=== PATIENT | male | born 1980 | race Caucasian/White ===

== ENCOUNTER 2016-09-27 11:16 | Emergency (ER) | payer OTHER ==
[~2016-09-27] VITALS: Ht 182.9 cm; Wt 114.6 kg
[2016-09-27 11:17] VITALS: TEMP 36.6; Ht 182.9 cm; Wt 114.6 kg
[2016-09-27] MEDS ORDERED: DIPHTHERIA/TETANUS/PERTUSSIS 0.5 ML SYR/VIAL IM ONE (11:45)
[2016-09-27] MEDS ORDERED: KETOROLAC TROMETHAMINE 30 MG/ML VIAL IV STA (12:12)
[2016-09-27] MEDS ORDERED: CEFAZOLIN SOD 1000MG/55 ML D5W IV STA (12:12)
[2016-09-27] MEDS ORDERED: XYLOCAINE 1%/SOD BICARB 20 ML VIAL INFIL STA (12:13)
[2016-09-27] MEDS ORDERED: BUPIVACAINE 0.5 % 5 MG/1 ML MPF 30ML VIAL INFIL STA (12:13)
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
[2016-09-27 13:07] LABS: BASO % 0.6 %; BASO ABS # 0.04 K/uL (0-0.2); COMPLETE YES; EOS % 4.2 %; HEMATOCRIT 45.8 % (42-52); IG% 0.1 %; LYMPH % 22.4 %; LYMPH ABS # 1.56 K/uL (1.2-3.4); MEAN CELL VOLUME 94.4 fL (80-100); MEAN CORPUSCULAR HGB CONC 33.8 g/dl (32-36); MEAN PLATELET VOLUME 9.5 fL (7.4-10.4); MONO % 8.5 %; NEUT % 64.2 %; PLATELET COUNT 281 K/uL (130-400); RED BLOOD COUNT 4.85 M/uL (4.7-6.1); WHITE BLOOD COUNT 6.97 K/uL (4.8-10.8)
[2016-09-27 13:35] LABS: BUN/CREATININE RATIO 17.1 (10-20); CALCIUM 9.3 mg/dl (8.5-10.1); CREATININE 0.86 mg/dl (0.60-1.40); POTASSIUM 4.1 mmol/L (3.5-5.1)
[2016-09-27 15:10] VITALS: BP 145/96; PULSE 96; O2SAT 95
[2016-09-27] MEDS ORDERED: CEPH500C PO (15:13)
[2016-09-27] MEDS ORDERED: OXYC1TAB3 PO (15:13)
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
== END 2016-09-27 15:29 | disposition home or self-care (01) ==
LOC: C.EDB 11:17 → C.EDD 15:29
DX: S62.501B Fracture of unspecified phalanx of right thumb, initial encounter for open fracture (principal); S61.011A Laceration without foreign body of right thumb without damage to nail, initial encounter; W23.0XXA Caught, crushed, jammed, or pinched between moving objects, initial encounter; Z23 Encounter for immunization